=== PATIENT | male | born 1985 | race Caucasian/White ===

== ENCOUNTER 2021-10-03 09:46 | Inpatient (IN) | payer BC ==
[2021-10-03 10:22] LABS: #Basophils 0.1 10x3/uL (0.0-0.2); #Eosinphils 0.1 10x3/uL (0.0-0.5); #Monocytes 0.7 10x3/uL (0.0-1.1); #Neutrophils 5.6 10x3/uL (1.5-8.4); %Basophils 0.6 % (0.0-2.0); %Eosinophils 1.2 % (0.0-6.0); %Lymphocytes 26.6 % (18.0-47.0); %Neutrophils 63.5 % (40.0-75.0); Hemoglobin 17.3 g/dL (13.5-17.5); Mean Corpuscular HGB CONC 35.6 g/dL (32.0-36.0); Mean Corpuscular Hemoglobin 30.8 pg (27.0-33.0); Mean Corpuscular Volume 86.6 fl (81.2-95.1); Mean Platelet Volume 9.4 fl (7.4-10.4); Platelet Count 256 10x3/uL (150-450); RBC Distribution Width 13.8 % (11.5-14.5); Red Blood Cell (RBC) Count 5.61 10x6/uL (4.32-5.72); White Blood Cell (WBC) Count 8.9 10x3/uL (3.5-10.5)
[2021-10-03] MEDS ORDERED: Ondansetron PF 4 MG/2 ML Vial ONE ×2 (10:33)
[2021-10-03] MEDS ORDERED: HYDROmorphone 0.5 MG/0.5 ML SYRINGE ONE (10:33)
[2021-10-03 10:42] LABS: ALT (SGPT) 89 U/L (8-55); AST (SGOT) 184 U/L (5-34); Albumin 4.3 g/dL (3.5-5.0); Alkaline Phosphatase 66 U/L (40-110); Anion Gap 21 mmol/L (10-20); BUN (Urea Nitrogen) 16 mg/dL (8.9-20.6); Bilirubin, Total 1.7 mg/dL (0.2-1.2); Calc. Creatinine Clearance 0 mL/min (70-130); Calcium 9.1 mg/dL (7.8-10.44); Carbon Dioxide 19 mmol/L (22-29); Chloride 100 mmol/L (98-107); Globulin 3.1 g/dL (2.4-3.5); Glucose 116 mg/dL (70-105); Lipase 76 U/L (8-78); Potassium 3.8 mmol/L (3.5-5.1); Protein, Total 7.4 g/dL (6.0-8.3); Sodium 136 mmol/L (136-145)
[2021-10-03] MEDS ORDERED: Lidocaine 2% Viscous Solution 10 ML, Aluminum & Magnesium Hydroxide 30 ML SSW SCH (11:30)
[2021-10-03] MEDS ORDERED: Acetaminophen 325 MG TAB PO PRN (13:58)
[2021-10-03] MEDS ORDERED: HYDROmorphone 0.5 MG/0.5 ML SYRINGE SLOW IVP SCH (15:30)
[2021-10-03] MEDS: Lorazepam 2 MG/ML VIAL SLOW IVP PRN ×3 (16:20→21:43)
[2021-10-03] MEDS: Lactated Ringer's 1,000 ML IV SCH (17:18)
[2021-10-03] MEDS: Ondansetron ODT 4 MG TAB PO PRN (17:18)
[2021-10-03 21:13] VITALS: BMI 28.5
[2021-10-03] MEDS: HYDROcodone/Acetaminophen 10/325 mg Tablet PO PRN (21:42)
[2021-10-03 21:53] LABS: Lactic Acid 1.4 mmol/L (0.5-2.2)
[2021-10-03] MEDS ORDERED: chlordiazePOXIDE HCl 25 MG CAP PO SCH (23:30)
[2021-10-04] MEDS: HYDROcodone/Acetaminophen 10/325 mg Tablet PO PRN ×3 (03:06→17:23)
[2021-10-04] MEDS: Lactated Ringer's 1,000 ML IV SCH ×5 (03:08→20:58)
[2021-10-04] MEDS ORDERED: Zolpidem Tartrate 5 MG TAB PO SCH ×2 (03:45→19:45)
[2021-10-04 06:43] LABS: #Eosinphils 0.2 10x3/uL (0.0-0.5); #Monocytes 0.5 10x3/uL (0.0-1.1); #Neutrophils 1.6 10x3/uL (1.5-8.4); %Basophils 0.2 % (0.0-2.0); %Eosinophils 3.7 % (0.0-6.0); %Lymphocytes 47.7 % (18.0-47.0); %Monocytes 10.6 % (0.0-10.0); %Neutrophils 37.6 % (40.0-75.0); Hemoglobin 14.2 g/dL (13.5-17.5); Mean Corpuscular HGB CONC 35.3 g/dL (32.0-36.0); Mean Corpuscular Volume 87.8 fl (81.2-95.1); Mean Platelet Volume 9.4 fl (7.4-10.4); Platelet Count 164 10x3/uL (150-450); Red Blood Cell (RBC) Count 4.58 10x6/uL (4.32-5.72); White Blood Cell (WBC) Count 4.4 10x3/uL (3.5-10.5)
[2021-10-04 06:47] LABS: ALT (SGPT) 61 U/L (8-55); AST (SGOT) 96 U/L (5-34); Albumin 3.6 g/dL (3.5-5.0); Alkaline Phosphatase 53 U/L (40-110); Anion Gap 11 mmol/L (10-20); BUN (Urea Nitrogen) 7 mg/dL (8.9-20.6); Bilirubin, Total 2.4 mg/dL (0.2-1.2); Calc. Creatinine Clearance 151 mL/min (70-130); Calcium 8.6 mg/dL (7.8-10.44); Carbon Dioxide 28 mmol/L (22-29); Chloride 102 mmol/L (98-107); Globulin 2.1 g/dL (2.4-3.5); Glucose 106 mg/dL (70-105); Lipase 63 U/L (8-78); Potassium 3.5 mmol/L (3.5-5.1); Protein, Total 5.7 g/dL (6.0-8.3); Sodium 137 mmol/L (136-145)
[2021-10-04] MEDS: Multivit, Therapeutic 1 TAB PO SCH (08:19)
[2021-10-04] MEDS: Amlodipine 5 MG TAB PO SCH (08:19)
[2021-10-04] MEDS: Folic Acid 1 MG TAB PO SCH (08:19)
[2021-10-04] MEDS: busPIRone HCl 15 MG TAB PO SCH ×2 (08:19→20:54)
[2021-10-04] MEDS: chlordiazePOXIDE HCl 25 MG CAP PO SCH ×4 (08:19→20:54)
[2021-10-04] MEDS: Thiamine 100 MG TAB PO SCH (08:19)
[2021-10-04] MEDS: Ondansetron ODT 4 MG TAB PO PRN ×2 (08:45→14:53)
[2021-10-04] MEDS ORDERED: Morphine 4 MG/ML VIAL SLOW IVP PRN (14:00)
[2021-10-04] MEDS: Morphine 4 MG/ML VIAL SLOW IVP SCH ×2 (15:00)
[2021-10-04 15:48] LABS: SARS-CoV-2 PCR by NAA Not Detected (NotDetected)
[2021-10-04] MEDS ORDERED: FLU VACC QS2021-22(6MOS UP)/PF 60 MCG/0.5 ML SYRINGE IM ONE (18:30)
[2021-10-04] MEDS ORDERED: Escitalopram Oxalate 10 mg Tablet PO SCH (21:00)
[2021-10-05] MEDS: HYDROcodone/Acetaminophen 10/325 mg Tablet PO PRN ×2 (00:24→05:54)
[2021-10-05] MEDS: Ondansetron PF 4 MG/2 ML Vial IVP PRN ×2 (00:25→06:43)
[2021-10-05 05:23] LABS: #Eosinphils 0.1 10x3/uL (0.0-0.5); #Monocytes 0.4 10x3/uL (0.0-1.1); #Neutrophils 2.6 10x3/uL (1.5-8.4); %Basophils 0.2 % (0.0-2.0); %Eosinophils 1.7 % (0.0-6.0); %Lymphocytes 31.2 % (18.0-47.0); %Monocytes 9.4 % (0.0-10.0); %Neutrophils 57.3 % (40.0-75.0); Hemoglobin 13.2 g/dL (13.5-17.5); Mean Corpuscular HGB CONC 34.4 g/dL (32.0-36.0); Mean Corpuscular Hemoglobin 30.8 pg (27.0-33.0); Mean Corpuscular Volume 89.7 fl (81.2-95.1); Mean Platelet Volume 9.7 fl (7.4-10.4); Platelet Count 141 10x3/uL (150-450); RBC Distribution Width 14.3 % (11.5-14.5); Red Blood Cell (RBC) Count 4.28 10x6/uL (4.32-5.72); White Blood Cell (WBC) Count 4.6 10x3/uL (3.5-10.5)
[2021-10-05 05:35] LABS: ALT (SGPT) 48 U/L (8-55); AST (SGOT) 62 U/L (5-34); Albumin 3.4 g/dL (3.5-5.0); Alkaline Phosphatase 46 U/L (40-110); Anion Gap 9 mmol/L (10-20); BUN (Urea Nitrogen) 5 mg/dL (8.9-20.6); Bilirubin, Direct 0.3 mg/dL (0.1-0.3); Bilirubin, Total 0.7 mg/dL (0.2-1.2); Calc. Creatinine Clearance 166 mL/min (70-130); Calcium 8.5 mg/dL (7.8-10.44); Carbon Dioxide 28 mmol/L (22-29); Chloride 105 mmol/L (98-107); Glucose 117 mg/dL (70-105); Potassium 3.3 mmol/L (3.5-5.1); Protein, Total 5.4 g/dL (6.0-8.3); Sodium 139 mmol/L (136-145)
[2021-10-05] MEDS: Lactated Ringer's 1,000 ML IV SCH ×2 (05:54)
[2021-10-05] MEDS ORDERED: Potassium Chloride 20 MEQ TAB PO SCH (08:00)
[2021-10-05 08:14] VITALS: BP 117/86; TEMP 97.3
[2021-10-05] MEDS: busPIRone HCl 15 MG TAB PO SCH (09:07)
[2021-10-05] MEDS: chlordiazePOXIDE HCl 25 MG CAP PO SCH (09:07)
[2021-10-05] MEDS: Folic Acid 1 MG TAB PO SCH (09:07)
[2021-10-05] MEDS: Amlodipine 5 MG TAB PO SCH (09:07)
[2021-10-05] MEDS: Multivit, Therapeutic 1 TAB PO SCH (09:07)
[2021-10-05] MEDS: Thiamine 100 MG TAB PO SCH (09:07)
== END 2021-10-05 09:35 | disposition home or self-care (01) | DRG 439 ==
LOC: CSHERS 09:46 → CSHTELE 14:56
PROVIDERS: ADMIT Family Medicine; ATTEND Family Medicine
PROC: HZ2ZZZZ Detoxification Services for Substance Abuse Treatment (ICD-10-PCS; principal; 2021-10-04)
DX: K85.20 Alcohol induced acute pancreatitis without necrosis or infection (principal); E87.2 Acidosis; Z20.822 Contact with and (suspected) exposure to COVID-19; F41.9 Anxiety disorder, unspecified; E78.5 Hyperlipidemia, unspecified; F10.10 Alcohol abuse, uncomplicated; K86.0 Alcohol-induced chronic pancreatitis; K70.0 Alcoholic fatty liver; F32.A Depression, unspecified; I10 Essential (primary) hypertension; E87.6 Hypokalemia; Z88.5 Allergy status to narcotic agent; Z88.8 Allergy status to other drugs, medicaments and biological substances; Z79.899 Other long term (current) drug therapy; Z71.41 Alcohol abuse counseling and surveillance of alcoholic
CPT/HCPCS: 36415; 36416; 74177; 80048; 80053; 80076; 82010; 83605; 83690; 85025; 96374; 96375; J1170; J2060; J2270; J2405; J7120; Q0162; U0003; U0005

== ENCOUNTER 2023-01-07 16:17 | Inpatient (IN) | payer BC ==
[2023-01-07] MEDS ORDERED: Lorazepam 2 MG/ML VIAL ONE ×2 (16:42→20:23)
[2023-01-07 17:29] LABS: #Monocytes 0.8 10x3/uL (0.0-1.1); %Basophils 0.4 % (0.0-2.0); %Eosinophils 0.2 % (0.0-6.0); %Lymphocytes 13.3 % (18.0-47.0); %Monocytes 8.4 % (0.0-10.0); %Neutrophils 77.4 % (40.0-75.0); Hemoglobin 17.1 g/dL (13.5-17.5); Mean Corpuscular HGB CONC 33.7 g/dL (32.0-36.0); Mean Corpuscular Hemoglobin 28.9 pg (27.0-33.0); Mean Platelet Volume 10.2 fl (7.4-10.4); Platelet Count 169 10x3/uL (150-450); Red Blood Cell (RBC) Count 5.91 10x6/uL (4.32-5.72)
[2023-01-07 17:31] LABS: Bilirubin Neg (Negative); Blood, Urine Negative (Negative); Clarity Clear (Clear); Glucose, Urine (Dipstick) Normal (Negative); Ketone, Urine Negative (Negative); Leukocyte Negative (Negative); Nitrite Negative (Negative); Protein, Urine (Dipstick) Negative (Neg-Trace); Specific Gravity, Urine 1.005 (1.005-1.030); Urobilinogen Normal mg/dL (Less than 2)
[2023-01-07 17:42] LABS: Amphetamine Not Detected (NotDetected); Barbiturates Screen Not Detected (NotDetected); Benzodiazepine Screen Detected (NotDetected); Cocaine Metabolite Screen Not Detected (NotDetected); Methadone Not Detected (NotDetected); Methamphetamine Not Detected (NotDetected); Opiate Screen Not Detected (NotDetected); Oxycodone Screen Not Detected (NotDetected); Phencyclidine (PCP) Not Detected (NotDetected); THC/Cannabinoid Screen Not Detected (NotDetected); Tricyclic Screen Not Detected (NotDetected)
[2023-01-07 17:46] LABS: Acetaminophen Less than 10.0 mcg/mL (10.0-30.0); Alcohol Less than 10 mg/dL (Less than 10); CK (CPK) 118 U/L (30-200); Salicylate Less than 8.0 mg/dL (15.0-30.0)
[2023-01-07 17:47] LABS: ALT (SGPT) 46 U/L (8-55); AST (SGOT) 50 U/L (5-34); Albumin 4.5 g/dL (3.5-5.0); Alkaline Phosphatase 68 U/L (40-110); Anion Gap 19 mmol/L (10-20); BUN (Urea Nitrogen) 17 mg/dL (8.9-20.6); Bilirubin, Total 0.7 mg/dL (0.2-1.2); Calc. Creatinine Clearance 0 mL/min (70-130); Calcium 8.8 mg/dL (7.8-10.44); Carbon Dioxide 18 mmol/L (22-29); Chloride 109 mmol/L (98-107); Estimated GFR 78; Globulin 2.8 g/dL (2.4-3.5); Glucose 113 mg/dL (70-105); Potassium 4.3 mmol/L (3.5-5.1); Protein, Total 7.3 g/dL (6.0-8.3); Sodium 142 mmol/L (136-145)
[2023-01-07] MEDS ORDERED: Calcium Carbonate 500 MG ChewTAB PO PRN (19:21)
[2023-01-07] MEDS ORDERED: Senokot S 8.6-50 MG TAB PO PRN (19:21)
[2023-01-07] MEDS ORDERED: Diazepam 5 MG TAB PO SCH (21:00)
[2023-01-07] MEDS ORDERED: Lactated Ringer's 500 ML IV SCH ×2 (21:30)
[2023-01-07] MEDS: Melatonin 3 MG TAB PO SCH (22:03)
[2023-01-07] MEDS: Lactated Ringer's 1,000 ML IV SCH (22:03)
[2023-01-07] MEDS: Ondansetron PF 4 MG/2 ML Vial IVP PRN (23:49)
[2023-01-08] MEDS ORDERED: Lorazepam 1 MG TAB PO SCH (02:00)
[2023-01-08] MEDS: Acetaminophen 325 MG TAB PO PRN ×3 (03:42→21:34)
[2023-01-08 06:07] LABS: #Monocytes 0.6 10x3/uL (0.0-1.1); #Neutrophils 3.3 10x3/uL (1.5-8.4); %Basophils 0.5 % (0.0-2.0); %Eosinophils 0.5 % (0.0-6.0); %Lymphocytes 35.4 % (18.0-47.0); %Monocytes 10.2 % (0.0-10.0); %Neutrophils 53.2 % (40.0-75.0); Hemoglobin 15.1 g/dL (13.5-17.5); Mean Corpuscular HGB CONC 33.8 g/dL (32.0-36.0); Mean Corpuscular Hemoglobin 28.9 pg (27.0-33.0); Mean Corpuscular Volume 85.5 fl (81.2-95.1); Mean Platelet Volume 10.2 fl (7.4-10.4); Platelet Count 146 10x3/uL (150-450); RBC Distribution Width 15.4 % (11.5-14.5); Red Blood Cell (RBC) Count 5.23 10x6/uL (4.32-5.72); White Blood Cell (WBC) Count 6.3 10x3/uL (3.5-10.5)
[2023-01-08] MEDS: Ondansetron PF 4 MG/2 ML Vial IVP PRN ×3 (06:10→22:52)
[2023-01-08] MEDS: Lactated Ringer's 1,000 ML IV SCH ×3 (06:13→22:52)
[2023-01-08 06:27] LABS: ALT (SGPT) 37 U/L (8-55); AST (SGOT) 39 U/L (5-34); Albumin 4.1 g/dL (3.5-5.0); Alkaline Phosphatase 70 U/L (40-110); Anion Gap 13 mmol/L (10-20); BUN (Urea Nitrogen) 18 mg/dL (8.9-20.6); Bilirubin, Total 1.2 mg/dL (0.2-1.2); CK (CPK) 115 U/L (30-200); Calc. Creatinine Clearance 0 mL/min (70-130); Calcium 9.1 mg/dL (7.8-10.44); Carbon Dioxide 21 mmol/L (22-29); Chloride 110 mmol/L (98-107); Estimated GFR 86; Globulin 2.8 g/dL (2.4-3.5); Glucose 91 mg/dL (70-105); Lipase 99 U/L (8-78); Magnesium 1.9 mg/dL (1.6-2.6); Potassium 3.4 mmol/L (3.5-5.1); Protein, Total 6.9 g/dL (6.0-8.3); Sodium 141 mmol/L (136-145)
[2023-01-08] MEDS ORDERED: Electrolyte Replacement Protocol 1 EACH FS SCH (07:30)
[2023-01-08] MEDS ORDERED: Magnesium 2 GM/50 ML(in water) 2 GM in Premix Bag 1 BAG IVPB SCH (08:00)
[2023-01-08] MEDS ORDERED: Potassium Chloride 20 MEQ TAB PO SCH (08:00)
[2023-01-08] MEDS: Gabapentin 100 MG CAP PO SCH (08:53)
[2023-01-08] MEDS: Diazepam 5 MG TAB PO SCH ×2 (08:53→20:30)
[2023-01-08] MEDS: Folic Acid 1 MG TAB PO SCH (08:53)
[2023-01-08] MEDS: Thiamine 100 MG TAB PO SCH (08:54)
[2023-01-08] MEDS ORDERED: Ondansetron PF 4 MG/2 ML Vial IVP PRN (08:58)
[2023-01-08] MEDS ORDERED: cloNIDine 0.1mg/24 Hour PATCH TD SCH (09:00)
[2023-01-08 09:22] VITALS: BMI 29.8
[2023-01-08] MEDS: Morphine 4 MG/ML VIAL SLOW IVP PRN ×5 (09:57→22:53)
[2023-01-08] MEDS ORDERED: Iopamidol 300 61% 100 ML VIAL FS ONE (10:31)
[2023-01-08] MEDS: ALPRAZolam 0.5 MG TAB PO PRN ×2 (17:48→22:53)
[2023-01-08] MEDS: Melatonin 3 MG TAB PO SCH (20:30)
[2023-01-09] MEDS: Morphine 4 MG/ML VIAL SLOW IVP PRN ×6 (02:28→22:16)
[2023-01-09 05:27] LABS: #Eosinphils 0.1 10x3/uL (0.0-0.5); #Monocytes 0.5 10x3/uL (0.0-1.1); #Neutrophils 2.6 10x3/uL (1.5-8.4); %Basophils 0.4 % (0.0-2.0); %Eosinophils 2.5 % (0.0-6.0); %Lymphocytes 34.2 % (18.0-47.0); %Monocytes 9.5 % (0.0-10.0); %Neutrophils 53.2 % (40.0-75.0); Hemoglobin 14.3 g/dL (13.5-17.5); Mean Corpuscular HGB CONC 33.9 g/dL (32.0-36.0); Mean Corpuscular Hemoglobin 29.2 pg (27.0-33.0); Mean Corpuscular Volume 86.3 fl (81.2-95.1); Mean Platelet Volume 10.2 fl (7.4-10.4); Platelet Count 123 10x3/uL (150-450); Red Blood Cell (RBC) Count 4.89 10x6/uL (4.32-5.72); White Blood Cell (WBC) Count 4.8 10x3/uL (3.5-10.5)
[2023-01-09 05:43] LABS: ALT (SGPT) 29 U/L (8-55); AST (SGOT) 33 U/L (5-34); Albumin 4.1 g/dL (3.5-5.0); Alkaline Phosphatase 75 U/L (40-110); Anion Gap 14 mmol/L (10-20); BUN (Urea Nitrogen) 16 mg/dL (8.9-20.6); Bilirubin, Total 0.9 mg/dL (0.2-1.2); Calc. Creatinine Clearance 149 mL/min (70-130); Calcium 8.8 mg/dL (7.8-10.44); Carbon Dioxide 20 mmol/L (22-29); Chloride 108 mmol/L (98-107); Estimated GFR 104; Globulin 2.6 g/dL (2.4-3.5); Glucose 90 mg/dL (70-105); Lipase 766 U/L (8-78); Magnesium 2.1 mg/dL (1.6-2.6); Phosphorus 2.9 mg/dL (2.3-4.7); Potassium 3.6 mmol/L (3.5-5.1); Protein, Total 6.7 g/dL (6.0-8.3); Sodium 138 mmol/L (136-145)
[2023-01-09] MEDS: Lactated Ringer's 1,000 ML IV SCH ×4 (05:47→17:56)
[2023-01-09] MEDS: Ondansetron PF 4 MG/2 ML Vial IVP PRN ×3 (05:51→17:05)
[2023-01-09] MEDS: Thiamine 100 MG TAB PO SCH (08:20)
[2023-01-09] MEDS: Gabapentin 100 MG CAP PO SCH (08:20)
[2023-01-09] MEDS: ALPRAZolam 0.5 MG TAB PO PRN ×2 (08:21→22:15)
[2023-01-09] MEDS: Diazepam 5 MG TAB PO SCH (08:21)
[2023-01-09] MEDS: Folic Acid 1 MG TAB PO SCH (08:22)
[2023-01-09] MEDS: Acetaminophen 325 MG TAB PO PRN ×2 (11:06→20:53)
[2023-01-09] MEDS: Senokot S 8.6-50 MG TAB PO SCH (20:53)
[2023-01-09] MEDS: Melatonin 3 MG TAB PO SCH (20:54)
[2023-01-10] MEDS: Lactated Ringer's 1,000 ML IV SCH ×5 (04:54→21:34)
[2023-01-10] MEDS: Morphine 4 MG/ML VIAL SLOW IVP PRN ×4 (04:55→21:34)
[2023-01-10] MEDS: Ondansetron PF 4 MG/2 ML Vial IVP PRN ×3 (04:55→16:58)
[2023-01-10 05:32] LABS: Anion Gap 12 mmol/L (10-20); BUN (Urea Nitrogen) 7 mg/dL (8.9-20.6); Calc. Creatinine Clearance 170 mL/min (70-130); Calcium 9.2 mg/dL (7.8-10.44); Carbon Dioxide 24 mmol/L (22-29); Chloride 105 mmol/L (98-107); Estimated GFR 115; Glucose 86 mg/dL (70-105); Lipase 903 U/L (8-78); Potassium 3.8 mmol/L (3.5-5.1); Sodium 137 mmol/L (136-145)
[2023-01-10] MEDS: Thiamine 100 MG TAB PO SCH (08:36)
[2023-01-10] MEDS: Folic Acid 1 MG TAB PO SCH (08:36)
[2023-01-10] MEDS: Gabapentin 100 MG CAP PO SCH (08:37)
[2023-01-10] MEDS: Diazepam 5 MG TAB PO SCH (08:38)
[2023-01-10] MEDS: Senokot S 8.6-50 MG TAB PO SCH ×2 (08:40→22:26)
[2023-01-11] MEDS: Lactated Ringer's 1,000 ML IV SCH ×2 (03:25→06:43)
[2023-01-11 04:13] LABS: Anion Gap 14 mmol/L (10-20); BUN (Urea Nitrogen) 6 mg/dL (8.9-20.6); Calc. Creatinine Clearance 178 mL/min (70-130); Calcium 9.5 mg/dL (7.8-10.44); Carbon Dioxide 23 mmol/L (22-29); Chloride 105 mmol/L (98-107); Estimated GFR 117; Glucose 92 mg/dL (70-105); Potassium 3.7 mmol/L (3.5-5.1); Sodium 138 mmol/L (136-145)
[2023-01-11] MEDS: Ondansetron PF 4 MG/2 ML Vial IVP PRN (04:53)
[2023-01-11] MEDS: Morphine 4 MG/ML VIAL SLOW IVP PRN (04:53)
[2023-01-11 06:46] VITALS: TEMP 98.2
[2023-01-11] MEDS: Diazepam 5 MG TAB PO SCH (09:29)
[2023-01-11] MEDS: Thiamine 100 MG TAB PO SCH (09:29)
[2023-01-11] MEDS: Folic Acid 1 MG TAB PO SCH (09:29)
[2023-01-11] MEDS: Gabapentin 100 MG CAP PO SCH (09:29)
[2023-01-11] MEDS: Senokot S 8.6-50 MG TAB PO SCH (09:30)
[2023-01-11 13:15] VITALS: BP 126/95
== END 2023-01-11 13:20 | disposition home or self-care (01) | DRG 896 ==
LOC: CSHERS 16:17 → CSHTELE 21:10
PROVIDERS: ADMIT Student in an Organized Health Care Education/Training Program; ATTEND Family Medicine
DX: F19.239 Other psychoactive substance dependence with withdrawal, unspecified (principal); G92.8 Other toxic encephalopathy; K85.20 Alcohol induced acute pancreatitis without necrosis or infection; G93.40 Encephalopathy, unspecified; N17.9 Acute kidney failure, unspecified; K86.0 Alcohol-induced chronic pancreatitis; T42.4X2A Poisoning by benzodiazepines, intentional self-harm, initial encounter; F41.9 Anxiety disorder, unspecified; F32.A Depression, unspecified; F39 Unspecified mood [affective] disorder; G47.00 Insomnia, unspecified; E78.5 Hyperlipidemia, unspecified; K21.9 Gastro-esophageal reflux disease without esophagitis; M10.9 Gout, unspecified; E86.0 Dehydration; G89.4 Chronic pain syndrome; I10 Essential (primary) hypertension; Z20.822 Contact with and (suspected) exposure to COVID-19; Z79.899 Other long term (current) drug therapy; Z88.8 Allergy status to other drugs, medicaments and biological substances; Z83.3 Family history of diabetes mellitus; Z82.49 Family history of ischemic heart disease and other diseases of the circulatory system
CPT/HCPCS: 36415; 51701; 70450; 74177; 80048; 80053; 80306; 80307; 81003; 82550; 83690; 83735; 84100; 84132; 84443; 85025; 93005; 94760; 96361; 96374; 96376; J1650; J2060; J2270; J2405; J3475; J7120; Q9967; U0003; U0005